=== PATIENT | female | born 1975 | race Caucasian/White ===

== ENCOUNTER 2024-05-05 05:10 | Day surgery (SDC) | payer OTHER ==
[2024-05-04 10:52] VITALS: BMI 22.6
[2024-05-05] MEDS ORDERED: LIDOCAINE HCL 1%, 10 MG/ML (20ML VIAL) ONE (10:52)
[2024-05-05] MEDS ORDERED: PROPOFOL 20 ML ONE (10:59)
[2024-05-05] MEDS ORDERED: MIDAZOLAM HCL 2 MG/2 ML SINGLE DOSE VIAL ONE (10:59)
[2024-05-05] MEDS: ceFAZolin SODIUM 1 GM VIAL IVPB ONE (11:15)
[2024-05-05] MEDS ORDERED: ONDANSETRON 4 MG/2 ML VIAL ONE ×2 (11:17→15:00)
[2024-05-05] MEDS: LIDOCAINE HCL 1%, 10 MG/ML (20ML VIAL) INF ONE ×2 (11:23)
[2024-05-05] MEDS ORDERED: ACETAMINOPHEN INJECTION 100 ML IVPB ONE (12:32)
[2024-05-05] MEDS: LACTATED RINGERS SOLUTION 1,000 ML IV SCH (12:34)
[2024-05-05] MEDS: ACETAMINOPHEN 1000 MG/100 ML BAG IVPB ONE (12:35)
[2024-05-05 14:13] VITALS: RESP 18
[2024-05-05] MEDS: ONDANSETRON 4 MG/2 ML VIAL IVPUSH PRN (15:15)
[2024-05-05 17:26] VITALS: TEMP 97.7
[2024-05-05 17:29] VITALS: BP 128/70; PULSE 57
== END 2024-05-05 17:07 | disposition home or self-care (01) ==
LOC: JASU-SURG 05:10
PROVIDERS: ATTEND Surgery
PROC: 0HBU0ZZ Excision of Left Breast, Open Approach (ICD-10-PCS; principal; 2024-05-05 11:00)
DX: D05.02 Lobular carcinoma in situ of left breast (principal)
CPT/HCPCS: 19281; 76098-TC-FY; 81025; 88307-TC; 88341-TC; 88342-TC; 94760; A4648; J0131